=== PATIENT | female | born 1995 | race Caucasian/White ===

== ENCOUNTER 2019-04-28 18:37 | Outpatient (CLI) | payer OTHER ==
[2019-04-28 19:18] LABS: MICROSCOPIC AUTO
[2019-04-28 19:40] LABS: AMPHETAMINE SCREEN, URINE Negative (Negative); BARBITURATE SCREEN, URINE Negative (Negative); BENZODIAZEPINE SCREEN, URINE Negative (Negative); CANNABINOID SCREEN, URINE Negative (Negative); COCAINE SCREEN, URINE Negative (Negative); METHADONE SCREEN, URINE Negative (Negative); OPIATE SCREEN, URINE Negative (Negative)
[2019-06-03] MEDS ORDERED: PREN1TAB60 PO (11:41)
[2019-06-03] MEDS ORDERED: CALC1CAP8 PO (11:41)
[2019-06-03] MEDS ORDERED: ACET325T14 PO (11:41)
[2019-06-03] MEDS ORDERED: RANI-244 PO (11:42)
== END 2019-04-28 21:23 | disposition home or self-care (01) ==
LOC: LDOP 18:37
PROVIDERS: ATTEND Obstetrics & Gynecology
DX: Z34.90 Encounter for supervision of normal pregnancy, unspecified, unspecified trimester (principal); Z3A.00 Weeks of gestation of pregnancy not specified
CPT/HCPCS: 80307; 81001; 87086; 99211; G0463

== ENCOUNTER 2019-05-18 16:58 | Outpatient (CLI) | payer OTHER ==
[~2019-05-18] VITALS: Ht 170.2 cm; Wt 68.1 kg
[2019-05-18] MEDS ORDERED: TERBUTALINE 1 MG/ML, 1ML ONE (17:38)
[2019-05-18] MEDS ORDERED: TERBUTALINE 1 MG/ML, 1ML SQ ONE (18:00)
[2019-05-18] MEDS ORDERED: PLEASE ENTER HEIGHT AND WEIGHT MC SCH (18:00)
[2019-05-18 18:33] LABS: MICROSCOPIC INDICATED
[2019-05-18 18:47] VITALS: BP 122/75
[2019-05-18] MEDS ORDERED: NITR100C56 PO (21:13)
[2019-06-03] MEDS ORDERED: CALC1CAP8 PO (11:41)
[2019-06-03] MEDS ORDERED: ACET325T14 PO (11:41)
[2019-06-03] MEDS ORDERED: PREN1TAB60 PO (11:41)
[2019-06-03] MEDS ORDERED: RANI-244 PO (11:42)
== END 2019-05-18 21:22 | disposition home or self-care (01) ==
LOC: LDOP 16:58
PROVIDERS: ATTEND Obstetrics & Gynecology
DX: O26.893 Other specified pregnancy related conditions, third trimester (principal); Z3A.29 29 weeks gestation of pregnancy
CPT/HCPCS: 59025; 76815; 81001; 87086; 87106; 96372; 99211; J3105; G0463

== ENCOUNTER 2019-07-10 11:21 | Outpatient (CLI) | payer OTHER ==
[~2019-07-10] VITALS: Ht 170.2 cm; Wt 74.5 kg
[~2019-07-10 11:21] MED LIST: ACET325T14 PO; CALC1CAP8 PO; NITR100C56 PO; PREN1TAB60 PO; RANI-244 PO
[2019-07-10 11:24] VITALS: BP 112/69
[2019-07-10 11:54] LABS: MICROSCOPIC NOT IND
== END 2019-07-10 12:55 | disposition home or self-care (01) ==
LOC: LDOP 11:21
PROVIDERS: ATTEND Obstetrics & Gynecology
DX: O26.893 Other specified pregnancy related conditions, third trimester (principal); R10.9 Unspecified abdominal pain; Z3A.36 36 weeks gestation of pregnancy
CPT/HCPCS: 59025; 81003; 84112; 87086; 99211; G0463

== ENCOUNTER 2019-07-26 19:04 | Outpatient (CLI) | payer OTHER ==
[2019-07-26] MEDS ORDERED: ZOLPIDEM 5MG TABLET ONE (20:35)
[2019-07-26] MEDS ORDERED: ZOLPIDEM 5MG TABLET PO SCH (21:00)
== END 2019-07-26 20:40 | disposition home or self-care (01) ==
LOC: LDOP 19:04
PROVIDERS: ATTEND Obstetrics & Gynecology
DX: Z34.93 Encounter for supervision of normal pregnancy, unspecified, third trimester (principal); Z3A.39 39 weeks gestation of pregnancy
CPT/HCPCS: 59025; 99211; G0463

== ENCOUNTER 2019-08-03 17:45 | Outpatient (CLI) | payer OTHER ==
[~2019-08-03] VITALS: Ht 170.2 cm; Wt 75.5 kg
[2019-08-03 17:54] VITALS: BP 114/76
== END 2019-08-03 19:59 | disposition home or self-care (01) ==
LOC: LDOP 17:45
PROVIDERS: ATTEND Obstetrics & Gynecology
DX: O36.8130 Decreased fetal movements, third trimester, not applicable or unspecified (principal); R10.9 Unspecified abdominal pain; O42.90 Premature rupture of membranes, unspecified as to length of time between rupture and onset of labor, unspecified weeks of gestation; Z3A.40 40 weeks gestation of pregnancy; Z37.9 Outcome of delivery, unspecified; Z91.018 Allergy to other foods
CPT/HCPCS: 59025; 76819; 99211; G0463

== ENCOUNTER 2019-08-07 08:18 | Inpatient (IN) | payer OTHER ==
[~2019-08-07] VITALS: Ht 170.2 cm; Wt 75.4 kg
[2019-08-07] MEDS ORDERED: OXYTOCIN 30U/ 0.9% NaCL 500ML 500 ML IV ONE (08:38)
[2019-08-07] MEDS ORDERED: OXYTOCIN 30U/ 0.9% NaCL 500ML 500 ML IV PRN (08:38)
[2019-08-07] MEDS: LACTATED RINGERS 1,000 ML IV SCH ×4 (08:59→19:59)
[2019-08-07] MEDS ORDERED: FENTANYL PF 100 MCG/2ML IV PRN (09:00)
[2019-08-07] MEDS ORDERED: SODIUM CITRATE/CITRIC ACID 30 ML UDC PO PRN (09:00)
[2019-08-07] MEDS ORDERED: TERBUTALINE 1 MG/ML, 1ML SQ PRN (09:00)
[2019-08-07] MEDS ORDERED: ONDANSETRON 2MG/ML, 2ML IVPush PRN (09:00)
[2019-08-07] MEDS ORDERED: FENTANYL PF 100 MCG/2ML IVPush PRN (09:00)
[2019-08-07] MEDS ORDERED: METOCLOPRAMIDE 5 MG/ML, 2ML IVPush PRN (09:00)
[2019-08-07] MEDS ORDERED: TERBUTALINE 1 MG/ML, 1ML IVPush PRN (09:00)
[2019-08-07] MEDS ORDERED: NEWBORN KIT ONE (09:09)
[2019-08-07] MEDS ORDERED: OXYTOCIN 30U/ 0.9% NaCL 500ML 500 ML ONE ×2 (09:10→20:56)
[2019-08-07] MEDS ORDERED: LIDOCAINE 1%, 20ML ONE (09:10)
[2019-08-07 09:28] LABS: BASOPHILS # (AUTO) 0.05 x10^3/uL (0-0.1); BASOPHILS % (AUTO) 1 % (0-1); EOSINOPHILS # (AUTO) 0.21 x10^3/uL (0-0.4); EOSINOPHILS % (AUTO) 3 % (1-7); LYMPHOCYTES # (AUTO) 1.28 x10^3/uL (1-3.4); LYMPHOCYTES % (AUTO) 19 % (22-44); MD NO; MEAN CORPUSCULAR HEMOGLOBIN 27.6 pg (27.0-34.8); MEAN CORPUSCULAR VOLUME 83.5 fL (80-100); MEAN PLATELET VOLUME 9.6 fL (7.4-10.4); MONOCYTES # (AUTO) 0.44 x10^3/uL (0.2-0.8); MONOCYTES % (AUTO) 6 % (2-9); NEUTROPHILS % (AUTO) 71 % (42-75); PLATELET COUNT 237 x10^3/uL (130-400); RED BLOOD COUNT 4.37 x10^6/uL (3.82-5.3)
[2019-08-07 09:37] VITALS: BP 126/73
[2019-08-07] MEDS ORDERED: FENTANYL/BUPIV./NS/PF 250 ML EPIDCONT SCH ×2 (10:02→11:59)
[2019-08-07] MEDS ORDERED: FENTANYL PF 500 MCG, BUPIVACAINE/PF 0.5%, 30ML 62.5 ML in SODIUM CHLORIDE 0.9% 177.5 ML EPIDCONT SCH (10:30)
[2019-08-07] MEDS ORDERED: EPHEDRINE 50 MG/ML, 1ML IVPush PRN (12:00)
[2019-08-07] MEDS ORDERED: NALOXONE 0.4 MG/ML, 1ML IVPush PRN (12:00)
[2019-08-07] MEDS ORDERED: LACTATED RINGERS 1,000 ML IVBOLUS PRN (12:00)
[2019-08-07] MEDS ORDERED: BUPIVACAINE 0.25% ONE (12:01)
[2019-08-07] MEDS: D5%-LACTATED RINGERS 1,000 ML IV SCH ×2 (15:13→16:38)
[2019-08-07] MEDS ORDERED: ONDANSETRON 2MG/ML, 2ML ONE (16:40)
[2019-08-07 19:24] VITALS: BP 130/72
[2019-08-07] MEDS ORDERED: IBUPROFEN 600 MG TABLET ONE (20:56)
[2019-08-07] MEDS ORDERED: MISOPROSTOL 200 MCG TABLET PR PRN (21:00)
[2019-08-07] MEDS ORDERED: ONDANSETRON 2MG/ML, 2ML IV PRN (21:00)
[2019-08-07] MEDS ORDERED: SIMETHICONE 80 MG CHEW TAB PO PRN (21:00)
[2019-08-07] MEDS ORDERED: ACETAMINOPHEN 325 MG TABLET PO PRN ×3 (21:00)
[2019-08-07] MEDS ORDERED: CARBOPROST TROMETHAMINE 250 MCG/ML, 1ML IM PRN (21:00)
[2019-08-07] MEDS ORDERED: METHYLERGONOVINE 0.2 MG/ML IM PRN (21:00)
[2019-08-07] MEDS ORDERED: OXYcodone/APAP 5/325MG TABLET PO PRN (21:00)
[2019-08-07] MEDS: OXYTOCIN 30U/ 0.9% NaCL 500ML 500 ML IV SCH (21:01)
[2019-08-07] MEDS ORDERED: CALCIUM CARBONATE 500 MG TAB.CHEW PO PRN (21:30)
[2019-08-07] MEDS: IBUPROFEN 600 MG TABLET PO PRN (21:34)
[2019-08-07 23:20] VITALS: BP 116/74
[2019-08-08 02:35] VITALS: BP 120/80
[2019-08-08] MEDS: IBUPROFEN 600 MG TABLET PO PRN ×3 (05:59→18:32)
[2019-08-08] MEDS: OXYTOCIN 30U/ 0.9% NaCL 500ML 500 ML IV SCH ×2 (06:58→16:58)
[2019-08-08 07:36] VITALS: BP 123/87
[2019-08-08 08:08] LABS: MEAN CORPUSCULAR HEMOGLOBIN 26.9 pg (27.0-34.8); MEAN CORPUSCULAR HGB CONC 32.2 g/dL (32.4-35.8); MEAN CORPUSCULAR VOLUME 83.8 fL (80-100); MEAN PLATELET VOLUME 9.5 fL (7.4-10.4); PLATELET COUNT 199 x10^3/uL (130-400); RED BLOOD COUNT 4.08 x10^6/uL (3.82-5.3); RED CELL DISTRIBUTION WIDTH 14.2 % (9.6-15.2)
[2019-08-08] MEDS: PRENATAL VIT/IRON/FA 1 EACH TABLET PO SCH (08:40)
[2019-08-08] MEDS: DOCUSATE 100 MG CAPSULE PO PRN ×2 (08:40→22:42)
[2019-08-08 08:52] LABS: BASOPHILS # (AUTO) 0.02 x10^3/uL (0-0.1); BASOPHILS % (AUTO) 0 % (0-1); EOSINOPHILS # (AUTO) 0.11 x10^3/uL (0-0.4); EOSINOPHILS % (AUTO) 1 % (1-7); LYMPHOCYTES # (AUTO) 1.17 x10^3/uL (1-3.4); LYMPHOCYTES % (AUTO) 10 % (22-44); MD SCAN; MONOCYTES # (AUTO) 0.54 x10^3/uL (0.2-0.8); MONOCYTES % (AUTO) 5 % (2-9); NEUTROPHILS # (AUTO) 9.59 x10^3/uL (1.8-6.8); NEUTROPHILS % (AUTO) 84 % (42-75)
[2019-08-08 12:13] VITALS: BP 124/81
[2019-08-08] MEDS: OXYcodone/APAP 5/325MG TABLET PO PRN ×3 (14:10→22:43)
[2019-08-08 16:01] VITALS: BP 112/75
[2019-08-08 20:00] VITALS: BP 119/78
[2019-08-09] MEDS ORDERED: IBUP-1222 PO (02:22)
[2019-08-09] MEDS: OXYcodone/APAP 5/325MG TABLET PO PRN (02:42)
[2019-08-09] MEDS: IBUPROFEN 600 MG TABLET PO PRN ×2 (02:42→08:50)
[2019-08-09 07:45] VITALS: BP 117/81
[2019-08-09] MEDS ORDERED: OXYC-302 PO (08:09)
[2019-08-09] MEDS: DOCUSATE 100 MG CAPSULE PO PRN (08:50)
[2019-08-09] MEDS: PRENATAL VIT/IRON/FA 1 EACH TABLET PO SCH (08:50)
== END 2019-08-09 13:40 | disposition home or self-care (01) | DRG 807 ==
LOC: LDIP 08:30 → 2NW 23:05
PROVIDERS: ADMIT Obstetrics & Gynecology; ATTEND Obstetrics & Gynecology
PROC: 10E0XZZ Delivery of Products of Conception, External Approach (ICD-10-PCS; principal; 2019-08-07)
PROC: 0HQ9XZZ Repair Perineum Skin, External Approach (ICD-10-PCS; 2019-08-07)
PROC: 3E0R3BZ Introduction of Anesthetic Agent into Spinal Canal, Percutaneous Approach (ICD-10-PCS; 2019-08-07)
PROC: 00HU33Z Insertion of Infusion Device into Spinal Canal, Percutaneous Approach (ICD-10-PCS; 2019-08-07)
PROC: 10907ZC Drainage of Amniotic Fluid, Therapeutic from Products of Conception, Via Natural or Artificial Opening (ICD-10-PCS; 2019-08-07)
PROC: 3E033VJ Introduction of Other Hormone into Peripheral Vein, Percutaneous Approach (ICD-10-PCS; 2019-08-07)
DX: O48.0 Post-term pregnancy (principal); Z37.0 Single live birth; O30.003 Twin pregnancy, unspecified number of placenta and unspecified number of amniotic sacs, third trimester; O70.0 First degree perineal laceration during delivery; Z3A.40 40 weeks gestation of pregnancy
CPT/HCPCS: 36415; J7121; 85025; 86850; 86900; G0378; J2405; J2590; J7120